=== PATIENT | male | born 1970 | race Two or more races ===

== ENCOUNTER 2023-10-15 19:49 | Inpatient (IN) | payer OTHER ==
[~2023-10-15] VITALS: Ht 162.6 cm; Wt 70.5 kg
[2023-10-16] MEDS ORDERED: MAGNESIUM HYDROXIDE SUSPENSION 30 ML UDCUP PO PRN (00:15)
[2023-10-16 00:24] LABS: BASOPHILS % (AUTO) 0.8 % (0.0-2.0); EOSINOPHILS % (AUTO) 1.3 % (1.0-6.0); HEMATOCRIT 42.3 % (41-53); HEMOGLOBIN 14.3 g/dL (13.5-17.5); LYMPHOCYTES # (AUTO) 1.4 K/uL (1.0-4.8); LYMPHOCYTES % (AUTO) 15.7 % (22.0-44.0); MEAN CORPUSCULAR HEMOGLOBIN 33.9 pg (26.0-34.0); MEAN CORPUSCULAR HGB CONC 33.9 G/dL (31.0-37.0); MEAN CORPUSCULAR VOLUME 100 fL (80-100); MONOCYTES # (AUTO) 1.2 K/uL (0.1-1.0); MONOCYTES % (AUTO) 12.9 % (2.0-9.0); NEUTROPHILS # (AUTO) 6.4 K/uL (1.8-7.7); NEUTROPHILS % (AUTO) 69.3 % (40.0-70.0); PLATELET COUNT (AUTO) 251 K/uL (150-450); RED BLOOD CELL COUNT(AUTO) 4.22 MIL/uL (4.50-5.90); RED CELL DISTRIBUTION WIDTH 13.8 % (11.5-14.5); WHITE BLOOD COUNT (AUTO) 9.2 K/uL (4.5-11.0)
[2023-10-16 00:32] LABS: ANION GAP 4 mmol/L (8-16); CARBON DIOXIDE 32 mmol/L (22-29); CHLORIDE 105 mmol/L (98-107); CREATININE 0.73 mg/dL (0.60-1.30); GLOMERULAR FILTR. RATE CALC > 60 mL/min (>60); GLUCOSE,RANDOM 108 mg/dL (70-110); POTASSIUM 3.8 mmol/L (3.5-5.1); SODIUM SERUM 141 mmol/L (136-145); UREA NITROGEN, BLOOD 8 mg/dL (7-18)
[2023-10-16 00:37] LABS: ALANINE AMINOTRANSFERASE 84 U/L (12-78); ALKALINE PHOSPHATASE 124 U/L (46-116); ASPARTATE AMINOTRANSFERASE 57 U/L (15-37); BILIRUBIN,TOTAL 0.4 mg/dL (0.1-1.0); TOTAL PROTEIN, SERUM 7.3 g/dL (6.4-8.2)
[2023-10-16 00:39] LABS: ALCOHOL, BLOOD (SERUM) < 3 mg/dL (0-10)
[2023-10-16 02:18] LABS: COVID AG,FIA SOURCE NASAL SWAB
[2023-10-16 02:29] LABS: APPEARANCE,URINE CLEAR (CLEAR); BILIRUBIN,URINE NEGATIVE (NEGATIVE); COLOR,URINE LIGHT YELLOW (YELLOW); GLUCOSE, URINE (UA) NEGATIVE (NEGATIVE); KETONES,URINE NEGATIVE (NEGATIVE); LEUKOCYTE ESTERASE ,URINE NEGATIVE (NEGATIVE); NITRATE,URINE NEGATIVE (NEGATIVE); OCCULT BLOOD,URINE NEGATIVE (NEGATIVE); PH,URINE 6.5 (5.0-8.0); PROTEIN,URINE NEGATIVE (NEGATIVE); SPECIFIC GRAVITIY, URINE 1.016 (1.003-1.030); UROBILINOGEN,URINE <=1.0 mg/dL (<=1.0)
[2023-10-16 02:34] LABS: ALCOHOL, URINE DRUG SCREEN NEGATIVE (NEGATIVE); AMPHET/METH SCREEN,URINE NEGATIVE (NEGATIVE); BARBITURATE SCREEN, URINE NEGATIVE (NEGATIVE); BENZODIAZEPINES SCREEN,URINE NEGATIVE (NEGATIVE); CANNABINOID SCREEN,URINE NEGATIVE (NEGATIVE); COCAINE SCREEN,URINE NEGATIVE (NEGATIVE); METHADONE SCREEN, URINE NEGATIVE (NEGATIVE); OPIATE SCREEN,URINE NEGATIVE (NEGATIVE); PHENCYCLIDINE SCREEN,URINE NEGATIVE (NEGATIVE)
[2023-10-16 02:35] LABS: PH,URINE DRUG SCREEN 6.5 (5.0-8.0)
[2023-10-16 02:47] LABS: SARS-COV2 (COVID) ANTIGEN,FIA Negative (Negative)
[2023-10-16] MEDS: FAMOTIDINE 20 MG TABLET PO SCH (09:17)
[2023-10-16 10:29] VITALS: BP 125/81; PULSE 87; RESP 18; TEMP 98.2; O2SAT 98
[2023-10-16] MEDS: ACETAMINOPHEN 325 MG TABLET PO PRN (10:50)
[2023-10-16 19:31] VITALS: BP 106/64; PULSE 77; RESP 18; TEMP 97.9
[2023-10-16] MEDS: HALOPERIDOL 5 MG TABLET PO SCH (20:38)
[2023-10-16] MEDS: TraZODone HCL 100 MG TABLET PO SCH (20:38)
[2023-10-16] MEDS: QUEtiapine FUMARATE 100 MG TABLET PO SCH (20:39)
[2023-10-17 05:08] VITALS: BP 111/70; PULSE 70; RESP 18; TEMP 98.4
[2023-10-17 07:35] VITALS: BP 98/63; PULSE 82; RESP 18; TEMP 98.2
[2023-10-17 19:46] VITALS: BP 110/70; PULSE 103; RESP 18; TEMP 98.4
[2023-10-18 04:22] VITALS: BP 106/71; PULSE 89; RESP 18; TEMP 98.8
[2023-10-18 08:40] VITALS: BP 93/70; PULSE 65; RESP 18; TEMP 97.5
[2023-10-18 10:22] LABS: ALANINE AMINOTRANSFERASE 63 U/L (12-78); ALBUMIN 2.5 g/dL (3.4-5.0); ALKALINE PHOSPHATASE 109 U/L (46-116); ANION GAP 8 mmol/L (8-16); ASPARTATE AMINOTRANSFERASE 40 U/L (15-37); BILIRUBIN,TOTAL 0.6 mg/dL (0.1-1.0); CALCIUM, TOTAL 8.7 mg/dL (8.8-10.5); CARBON DIOXIDE 27 mmol/L (22-29); CHLORIDE 105 mmol/L (98-107); GLOMERULAR FILTR. RATE CALC > 60 mL/min (>60); GLUCOSE,RANDOM 118 mg/dL (70-110); POTASSIUM 3.7 mmol/L (3.5-5.1); SODIUM SERUM 140 mmol/L (136-145); TOTAL PROTEIN, SERUM 7.2 g/dL (6.4-8.2); UREA NITROGEN, BLOOD 10 mg/dL (7-18)
[2023-10-18 19:57] VITALS: BP 111/69; PULSE 93; RESP 18; TEMP 98.6
[2023-10-19 04:31] VITALS: BP 102/65; PULSE 81; RESP 18; TEMP 98.2
[2023-10-19 09:15] VITALS: BP 100/60; PULSE 74; RESP 20; TEMP 98
[2023-10-19 19:42] VITALS: BP 106/63; PULSE 81; RESP 18; TEMP 98
[2023-10-20 04:33] VITALS: BP 100/61; PULSE 67; RESP 18; TEMP 98.2
[2023-10-20 08:13] VITALS: BP 100/64; PULSE 75; RESP 20; TEMP 98.3
[2023-10-20] MEDS ORDERED: FAMO20 PO (11:31)
[2023-10-20] MEDS ORDERED: HALO5TAB23 PO (11:33)
[2023-10-20] MEDS ORDERED: QUET100T PO (11:35)
[2023-10-20] MEDS ORDERED: TRAZ-257 PO (11:36)
[2023-10-20] MEDS ORDERED: ACET-2247 PO (11:38)
[2023-10-20] MEDS ORDERED: MAGN-169 PO (11:38)
== END 2023-10-20 13:35 | DRG 885 ==
LOC: EMS 19:49 → EDBEDREQ 23:52 → EDBEDREQSVC 23:52 → EDH 10-16 00:45 → 6S 10-16 09:44
PROVIDERS: ADMIT Internal Medicine; ATTEND Internal Medicine
DX: F20.0 Paranoid schizophrenia (principal); R45.851 Suicidal ideations; F15.10 Other stimulant abuse, uncomplicated; F17.210 Nicotine dependence, cigarettes, uncomplicated; R79.89 Other specified abnormal findings of blood chemistry; Z20.822 Contact with and (suspected) exposure to COVID-19
CPT/HCPCS: 71045; 80053; 80307; 81003; 85025; 99285; G0480; 36415-L1; 36415-TC